=== PATIENT | male | born 1930 | race Caucasian/White ===

== ENCOUNTER 2016-09-17 07:57 | Emergency (ER) | payer OTHER ==
[~2016-09-17] VITALS: Ht 180.3 cm; Wt 113.7 kg
[~2016-09-17 07:57] MED LIST: ASPIR-LOW81 MG PO; BONINE25 MG PO; CALAN SR,COVER240 MG PO; COLCRYS0.6 MG PO; DUONEB 2.5-0.5 M3 ML AEROSOL; FISH OIL 1,0001 EAC7 PO; HYDROCHLOROTHIA25 MG PO; INDOMETHACIN25 MG PO; LEVAQUIN500 MG PO; LISINOPRIL40 MG PO; LOMOTIL TABLET1 EACH PO; LUPRON DEPOT45 MG IM; METOPROLOL SUCC50 MG PO; MICRO-K10 ME2 PO; MOTRIN600 MG PO; NORVASC5 MG PO; OXYCONTIN10 MG PO; PRAVASTATIN SOD40 MG PO; PREDNISONE20 MG PO; PRESERVISION T1 EACH PO; PRILOSEC20 MG PO; TRAMADOL HCL50 MG PO; VERAPAMIL ER200 MG PO
[2016-09-17 08:45] LABS: EOSINOPHIL (%) 0.6 % (0-5); HEMATOCRIT 39.4 % (38.0-50.0); IMMATURE GRANULOCYTE COUNT 0.1 K/uL; INSTRUMENT ABS NEUTROPHIL CT 5.6 K/uL; LYMPHOCYTE COUNT 0.9 K/uL (1.0-2.8); MCH 29.7 PG (29.0-34.0); MCHC 33.5 G/DL (30.0-36.0); MCV 88.7 FL (86-99); MEAN PLAT.VOLUME 9.3 uM^3 (9.0-12.4); MONOCYTE (%) 6.3 % (3-12); MONOCYTE COUNT 0.5 K/uL (0-0.8); NEUTROPHIL (%) 78.4 % (45-76); NEUTROPHIL COUNT 5.6 K/uL (1.8-6.4); PLATELET COUNT 224 K/uL (156-360); RBC DIS.WIDTH-CV 14.2 % (11.8-14.6); RBC DIS.WIDTH-SD 45.9 % (39-53); RED BLOOD COUNT 4.44 M/uL (4.00-5.50); WHITE BLOOD COUNT 7.1 K/uL (4.1-10.2)
[2016-09-17 08:55] LABS: POTASSIUM 4.7 mEq/L (3.7-5.4); SODIUM 139 mEq/L (136-147)
[2016-09-17 08:57] LABS: GLUCOSE 123 mg/dL (70-99)
[2016-09-17 08:58] LABS: ANION GAP 14 MEQ/L (2-14)
[2016-09-17 08:59] LABS: TOTAL BILIRUBIN 0.5 mg/dL (0.0-1.0)
[2016-09-17 09:00] LABS: ALKALINE PHOSPHATASE 60 IU/L (3-129)
[2016-09-17 09:01] LABS: GFR ESTIMATE (CALCULATED) 44 mL/min/
[2016-09-17 09:02] LABS: UREA NITROGEN (BUN) 25 mg/dL (9-23)
[2016-09-17 09:06] LABS: TROP-I INTERPRETATION NEGATIVE; TROPONIN-I < 0.01 ng/mL (0.0-0.30)
[2016-09-17 09:13] LABS: CHLORIDE 105 mEq/L (99-109)
[2016-09-17 11:09] LABS: ADD MIUA? YES; BILIRUBIN NEGATIVE; BLOOD SMALL; COLOR STRAW ((YELLOW)); GLUCOSE (STRIP) NEGATIVE; KETONES NEGATIVE; LEUKOCYTES NEGATIVE; NITRITE NEGATIVE; PROTEIN (STRIP) 30; SPECIFIC GRAVITY 1.035 (1.000-1.030); UROBILINOGEN 0.2 MG/DL (0.2-1.0)
[2016-09-17 11:16] LABS: BACTERIA NONE SEEN /HPF; EPITHELIAL CELLS NONE SEEN /HPF; MUCUS TRACE /LPF; RED BLOOD CELLS 0-5 /HPF (0-5); UCUL ADDED? NO; WHITE BLOOD CELLS 0-5 /HPF (0-5)
[2016-09-17 12:22] VITALS: BP 138/74
== END 2016-09-17 12:15 | disposition home or self-care (01) ==
LOC: EME → EDBD 07:57 → EME 12:15
PROVIDERS: Emergency Medicine
DX: R10.11 Right upper quadrant pain (principal); E78.5 Hyperlipidemia, unspecified; I10 Essential (primary) hypertension; W07.XXXA Fall from chair, initial encounter; Y92.098 Other place in other non-institutional residence as the place of occurrence of the external cause; Z96.643 Presence of artificial hip joint, bilateral; Z96.653 Presence of artificial knee joint, bilateral; Z87.891 Personal history of nicotine dependence
CPT/HCPCS: 71260; 74177; 80053; 81003; 84484; 85025; 93005; 99281; 99285; J2405; J2765; J3010

== ENCOUNTER 2017-03-15 04:31 | Emergency (ER) | payer OTHER ==
[~2017-03-15] VITALS: Ht 177.8 cm; Wt 114.1 kg
[2017-03-15 05:15] LABS: CHLORIDE 101 mEq/L (99-109); POTASSIUM 4.3 mEq/L (3.7-5.4); SODIUM 132 mEq/L (136-147)
[2017-03-15 05:17] LABS: GLUCOSE 116 mg/dL (70-99)
[2017-03-15 05:20] LABS: CREATININE 1.2 mg/dL (0.6-1.3); GFR ESTIMATE (CALCULATED) > 59 mL/min/ (58.99-99999)
[2017-03-15 05:21] LABS: UREA NITROGEN (BUN) 18 mg/dL (9-23)
[2017-03-15 05:27] LABS: TROP-I INTERPRETATION NEGATIVE; TROPONIN-I 0.02 ng/mL (0.0-0.30)
[2017-03-15 05:44] LABS: HEMATOCRIT 35.6 % (38.0-50.0); HEMOGLOBIN 12.2 G/DL (12.5-16.6); MCH 30.3 PG (29.0-34.0); MCHC 34.3 G/DL (30.0-36.0); MCV 88.6 FL (86-99); PLATELET COUNT 199 K/uL (156-360); RBC DIS.WIDTH-CV 14.2 % (11.8-14.6); RED BLOOD COUNT 4.02 M/uL (4.00-5.50)
[2017-03-15 07:04] VITALS: BP 133/75
== END 2017-03-15 07:05 ==
LOC: EME → EDBD 04:31 → EME 04:31
PROVIDERS: Emergency Medicine
DX: E86.0 Dehydration (principal); S00.93XA Contusion of unspecified part of head, initial encounter; W18.30XA Fall on same level, unspecified, initial encounter; M79.672 Pain in left foot; Z79.01 Long term (current) use of anticoagulants; E78.5 Hyperlipidemia, unspecified; I10 Essential (primary) hypertension; F32.9 Major depressive disorder, single episode, unspecified; F41.9 Anxiety disorder, unspecified; Z96.653 Presence of artificial knee joint, bilateral; Z96.643 Presence of artificial hip joint, bilateral; Z87.891 Personal history of nicotine dependence
CPT/HCPCS: 70450; 72125; 73630; 80048; 84484; 85027; 93005; 99281; 99284